=== PATIENT | female | born 1980 | race Caucasian/White ===

== ENCOUNTER → 2020-10-05 10:43 | Outpatient (CLI) | payer OTHER, SELFPAY ==
[2020-10-05 10:56] LABS: Add Manual Diff / Slide Review NO; Basophils Absolute Auto 0 /uL (0-100); Basophils Percent Auto 0.2 % (0-2); Eosinophils Absolute Auto 0 /uL (0-450); Eosinophils Percent Auto 0.8 % (2-4); Hematocrit 41.9 % (36-46); Hemoglobin 13.8 g/dL (12.0-16.0); Lymphocytes Absolute Auto 1400 /uL (1100-4500); Lymphocytes Percent Auto 26.2 % (25-40); Mean Corpuscular HGB Conc 32.9 % (30-36); Mean Corpuscular Hemoglobin 28.9 PG (26-34); Mean Corpuscular Volume 87.7 fL (80-100); Monocytes Absolute Auto 300 /uL (0-900); Monocytes Percent Auto 5.6 % (3-14); Neutrophils Absolute Auto 3500 /uL (1500-7000); Neutrophils Percent Auto 67.2 % (50-75); Platelet Count 213 X10^3/uL (150-400); Red Blood Cell Count 4.78 X10^6/uL (4.0-5.2); Red Cell Distribution Width 13.1 % (11.6-14.8); White Blood Cell Count 5.2 X10^3/uL (4.5-11.0)
[2020-10-05 11:08] LABS: Alanine Aminotransferase 16 IU/L (<35); Albumin 4.3 g/dL (3.5-5.0); Albumin Globulin Ratio 1.5 (1.0-2.8); Alkaline Phosphatase 48 U/L (38-126); Aspartate Aminotransferase 24 IU/L (14-36); BUN Creatinine Ratio 11.8 (6-22); Bilirubin Total 0.9 mg/dL (0.2-1.3); Blood Urea Nitrogen 10 mg/dL (7-17); Calcium 9.4 mg/dL (8.4-10.2); Carbon Dioxide 26 mmol/L (22-32); Chloride 105 mmol/L (98-107); Estimated Glomerular Filt Rate > 60.0 mL/min (>60); Globulin 2.9 g/dL (1.7-4.1); Glucose 96 mg/dL (70-100); HEMOLYSIS < 15 (0-50); Potassium 4.1 mmol/L (3.4-5.1); Sodium 139 mmol/L (137-145); Total Protein 7.2 g/dL (6.3-8.2)
[2020-10-05 11:24] LABS: HCG Quantitative /Beta subunit < 2.4 mIU/mL
== END ==
PROVIDERS: Referring Provider Physician Assistant; Visit Provider Physician Assistant
DX: N92.6 Irregular menstruation, unspecified (principal); R10.9 Unspecified abdominal pain
CPT/HCPCS: 36415; 80053; 84702; 85025

== ENCOUNTER → 2025-04-05 07:39 | Outpatient (CLI) | payer OTHER, SELFPAY ==
--- NOTE | 2025-04-05 07:41 | DI.MRI.S_ITS ---
PROCEDURE: MR ANKLE RT WO CON INDICATIONS: Injury of RT ankle TECHNIQUE: Noncontrast sagittal T1 spin echo and T2 fast spin echo with fat saturation, axial proton density fast spin echo and T2 fast spin echo with fat saturation, coronal T1 spin echo and T2 fast spin echo with fat saturation through the ankle/hindfoot. COMPARISON: [facility], CR, XR ANKLE 3+ VIEWS RIGHT, 03/19/2025, 10:14. FINDINGS: Quality: Adequate Extensor tendons: Unremarkable Medial ankle tendons: Posterior tibialis tendon: Intact. Flexor digitorum longus tendon: Intact. Flexor hallucis longus tendon: Intact. Medial ankle ligaments: Deltoid ligament, superficial and deep: Intact Spring ligaments: Intact. Lateral ankle tendons: Peroneus brevis tendon: Intact. Peroneus longus tendon: Intact. Lateral ankle ligaments: Tibiofibular ligaments: Intact Anterior talofibular ligament: complete tear. Posterior talofibular ligament: Intact. Calcaneofibular ligament: Intact. Achilles tendon: Edema along the tendon insertion and mild interstitial signal. No tear.. Plantar fascia: Unremarkable. Sinus tarsi: Unremarkable. Tarsal tunnel: Unremarkable. Cartilage: No focal defect identified. Bones: No fracture. Joints: Small tibiotalar effusion. Other: None. IMPRESSION: Grade 3 anterior talofibular ligament sprain. Achilles tendinopathy. No osteochondral defect. Dictated by: Cedrick Chambers M.D. on 04/05/2025 at 13:17 Approved by: Cedrick Chambers M.D. on 04/05/2025 at 13:32
== END ==
LOC: MRI 07:40
DX: S93.491A Sprain of other ligament of right ankle, initial encounter (principal); M25.471 Effusion, right ankle; X58.XXXA Exposure to other specified factors, initial encounter
CPT/HCPCS: 73721